=== PATIENT | male | born 1965 | race Caucasian/White ===

== ENCOUNTER 2025-03-02 12:25 | Emergency (ER) | payer OTHER ==
[~2025-03-02] VITALS: Ht 188 cm; Wt 90.9 kg
[2025-03-02] MEDS: TETanus/Pertussis (Acell)/Diphther VAC/PF (Tdap-Adult) 0.5ml syringe IMVAC ONE (12:55)
[2025-03-02] MEDS: LIDOcaine 1% W/epiNEPHrine 1:100,000 20ml vial SQ ONE (12:56)
[2025-03-02] MEDS ORDERED: CEPH-585 PO (12:57)
--- NOTE | 2025-03-02 12:58 | Physician Documentation ---
History of Present Illness ~ Chief Complaint: Laceration Stated Complaint: LACERATION Time Seen by MD: 12:35 Source: patient Mode of Arrival: POV Exam Limitations: no limitations HPI 59-year-old male cut left hand with his own new pocket knife. Patient is not up-to-date with tetanus concerns for arterial bleed Tetanus Within 5 Years: No Medication Reconciliation Allergies: Coded Allergies: No Known Allergies (Unverified , 03/02/25) Past Medical History Past Medical History: No Pertinent History Past Surgical History: noncontributory Drug Use: none Lives with: Family Lives In: Home Occupation: employed Review of Systems All Other Systems at this time: Reviewed and Negative Integumentary: Reports: see HPI Physical Exam Vital Signs: RN Vital Signs have been reviewed: Yes, Temperature: 98.6, Source: Oral, Heart Rate: 78, Respiratory Rate: 16, BP: 134/84, Pulse Oximetry: 99, Weight: 90.910 Oxygen Flow Rate: 0 Physical Exam General: Alert, no apparent distress. HEENT: moist mucous membranes. Neck: Full range of motion. Respiratory: No respiratory distress speaking in full sentences Chest: No accessory muscle use. Cardiovascular: Appears well perfused Integumentary: 4 cm laceration to the dorsal aspect of the left hand in between the thumb and 2nd finger with is likely arterial flow. Sensation and circulation intact Neurologic: Oriented x4. Psychiatric: Normal mood and affect. Skin: Normal color, warm and dry. No edema, no ecchymosis. Procedures Laceration/Wound Repair Laceration : Location: Left hand Length (cm): 4 Anesthesia: Lidocaine w/ Epi Volume Anesthetic (mls): 4 Prep: betadine, irrigated by physician, scrubbed Irrigated w/ Saline (mls): 50 Undermining: none Margins: flaps aligned Foreign Body: not identified Repaired: skin, subcutaneous Wound Repaired With: sutures Suture Size/Type: 4-0, prolene Number of Superficial Sutures: 5 Layer Closure?: No Dressing Applied: simple, non-adherent, other (Pressure) Splint Applied?: No Sling Applied?: No Tolerated Procedure Well?: yes, no complications Progress Results/Orders Results/Orders Completed Orders - RENETTA DIAZ DEPUTY ADMINISTRATOR Tetanus/Pertuss/Diph Acell/Pf (Boostrix (03/02/25 12:45) Lidocaine 1% W/Epi 1:100,000 (Xylocaine (03/02/25 12:45) Vital Signs 03/02/25 12:37 Temp 98.6 Pulse 78 Resp 16 B/P (MAP) 134/84 Pulse Ox 99 O2 Flow Rate 0 Medical Decision Making Additional information obtaine: N/A Findings Tourniquet placed during triage removed within minutes using lidocaine and epi bleeding controlled laceration repaired 5 sutures placed tetanus vaccine provided Differential Dx:Considerations: Include: Laceration Departure Time of Disposition: 12:56 Disposition: 01 HOME / SELF CARE / HOMELESS Impression: Primary Impression: Laceration Condition: Stable Discharge Instructions: Laceration Care, Adult, [id number] Additional Instructions: Leave dressing on for 24 hours but leave the pressure dressing on for an hour if he noticed bleeding rewrap with Coban provided at today's visit. Sutures to be open to air within 24 hours may shower pat dry monitor for infection have sutures removed in 10-14 days. Referrals: NO PRIMARY CARE PROVIDER (PCP) Prescriptions Cephalexin*Monohydrate* (Keflex*) 500 Mg Capsule 1 CAP PO Q12H for 10 Days, #20 CAP Prov: RENETTA DIAZ NP 03/02/25 Education Educated: Patient Educated regarding: diagnosis, treatment, need for follow up Signature Scribe Signature: No scribe Attestation: The note accurately reflects work and decisions made by me.Renetta Diaz - ROPE LAYING MACHINE OPERATOR 03/02/25 12:57 RENETTA DIAZ NP Mar 02, 2025 12:57
[2025-03-02 13:36] VITALS: BP 128/74; PULSE 78; RESP 16; TEMP 98.4; O2SAT 98
== END 2025-03-02 13:38 | disposition home or self-care (01) ==
LOC: ER 12:25
DX: S61.412A Laceration without foreign body of left hand, initial encounter (principal); W26.0XXA Contact with knife, initial encounter; Y93.89 Activity, other specified; Y92.89 Other specified places as the place of occurrence of the external cause; Y99.8 Other external cause status
CPT/HCPCS: 12002; 12032; 90471; 90715; 99284